=== PATIENT | male | born 1975 | race Two or more races ===

== ENCOUNTER → 2016-08-07 | Outpatient (CLI) | payer OTHER ==
--- NOTE | 2016-08-07 14:34 | RAD ---
Indication: Left knee pain. Time of exam 1424 hours. 3 views of the left knee were obtained. Moderate medial and patellofemoral compartmental degenerative changes noted with joint space narrowing. There are prominent osteophytes along the posterior aspect of the patella. Lateral compartment is fairly well maintained. No fracture, dislocation or effusion is seen. Impression: Degenerative changes. This is greatest involving the medial and patellofemoral compartments. No acute bony abnormality is detected.
== END | disposition home or self-care (01) ==
LOC: DXRADRC 14:15
PROVIDERS: ATTEND Physician Assistant
DX: M17.12 Unilateral primary osteoarthritis, left knee (principal)
CPT/HCPCS: 73562